=== PATIENT | male | born 1980 | race Caucasian/White ===

== ENCOUNTER 2023-03-18 05:59 | Emergency (ER) | payer MEDICAID ==
[~2023-03-18] VITALS: Ht 167.6 cm; Wt 59.0 kg
[2023-03-18 06:09] VITALS: O2SAT 97
[2023-03-18] MEDS ORDERED: KETOROLAC 30MG/ML VIAL IM ONE (06:45)
[2023-03-18] MEDS ORDERED: PROPOFOL 200MG/20ML VIAL IV ONE (07:30)
[2023-03-18] MEDS ORDERED: KETAMINE HCL 50 MG/ML 10ML IV ONE (07:30)
[2023-03-18] MEDS ORDERED: KETO10TA2 MT (08:27)
[2023-03-18 08:38] VITALS: BP 129/87; PULSE 65; RESP 20; TEMP 97.9
== END 2023-03-18 08:49 | disposition home or self-care (01) ==
LOC: ER 05:59
DX: S92.002A Unspecified fracture of left calcaneus, initial encounter for closed fracture (principal); Y93.89 Activity, other specified; Y92.89 Other specified places as the place of occurrence of the external cause; Y99.8 Other external cause status
CPT/HCPCS: 73610; 73630; 73650; 29515; 96372; 99284; J1885; Z7610; J2704